=== PATIENT | male | born 1970 | race Caucasian/White ===

== ENCOUNTER 2016-05-16 09:03 | Day surgery (SDC) | END 2016-05-16 14:31 | disposition home or self-care (01) | DX: M23.242 Derangement of anterior horn of lateral meniscus due to old tear or injury, left knee (principal); M94.262 Chondromalacia, left knee | CPT/HCPCS: 29881; J0131; J0171; J0690; J1100; J2405; J2795; J3010; Z7512; Z7610 ==

== ENCOUNTER 2018-02-19 07:12 | Day surgery (SDC) | END 2018-02-19 14:41 | disposition home or self-care (01) ==